=== PATIENT | male | born 1985 | race Caucasian/White ===

== ENCOUNTER 2018-06-28 22:18 | Emergency (ER) | payer OTHER ==
[~2018-06-28] VITALS: Ht 170.1 cm; Wt 138.3 kg
--- NOTE | ~2018-06-28 | EKG ---
[place], [place] ELECTROCARDIOGRAM REPORT NAME: FERNANDO KURTZ UNIT #: [id number] ROOM: DOCTOR: EPIPHANY DRAFT REPORT BIRTHDATE: [birth year] [facility] [place] Test Date: 2018-06-28 Test Time: 22:50:40 Pat Name: FERNANDO KURTZ Department: ER Room: 13 Gender: M [employer]: : 1985 Requested By: FATOUMATA PUENTES DNP Order Number: [id number] Reading MD: Riki Cameron MD Measurements Intervals [place] Rate: 85 P: -5 [place]: 137 QRS: -20 QRSD: 100 T: 20 QT: 395 QTc: 470 Interpretive Statements Sinus rhythm Borderline left axis deviation Borderline prolonged QT interval Electronically Signed On 06-30-2018 14:01:50 PDT by Riki Cameron MD CM:EKGRPT:ELECTROCARDIOGRAM REPORT 2250 [id number] FATOUMATA ALFARO DRAFT REPORT FATOUMATA PUENTES DNP
[2018-06-28 22:56] LABS: BASO # 0.1 10*3/uL (0.0-0.1); BASO % 0.8 % (0.0-1.0); EOS % 0.4 % (1.0-4.0); HEMATOCRIT 45.9 % (42.0-52.0); HEMOGLOBIN 14.9 g/dl (14.0-18.0); LYMPH # 1.6 10*3/uL (1.3-4.4); LYMPH % 20.2 % (27.0-41.0); MEAN CELL VOLUME 97.2 fl (80.0-94.0); MEAN CORPUSCULAR HGB 31.6 pg (27.0-31.0); MEAN CORPUSCULAR HGB CONC 32.5 g/dl (33.0-37.0); MEAN PLATELET VOLUME 10.6 fl (9.6-12.3); MONO # 0.7 10*3/uL (0.1-1.0); MONO % 9.1 % (3.0-9.0); NEUT # 5.4 10*3/uL (2.3-7.9); NEUT % 69.1 % (47.0-73.0); PLATELET COUNT AUTOMATED 113 10*3/uL (130-400); RED BLOOD COUNT 4.72 10*6/uL (4.50-5.90); RED CELL DISTRI WIDTH 15.8 % (0-14.5); WHITE BLOOD COUNT 7.8 10*3/uL (4.8-10.8)
[2018-06-28 23:06] LABS: ACT PARTIAL THROMBO TIME 24.2 SECONDS (20.8-31.5); INTERNATIONAL NORM RATIO 1.1 (2.0-3.5)
[2018-06-28 23:14] LABS: ACETAMINOPHEN (TYLENOL) < 5.0 ug/ml (10-30); ALBUMIN 3.2 gm/dl (3.1-4.5); ALKALINE PHOSPHATASE 213 U/L (45-117); BUN 6 mg/dl (7-24); CHLORIDE 109 mmol/L (98-107); CREATININE 0.62 mg/dL (0.70-1.30); POTASSIUM 3.9 mmol/L (3.5-5.1); SGOT/AST 113 IU/L (3-35); SGPT/ALT 95 U/L (12-78); SODIUM 143 mmol/L (136-145); TOTAL PROTEIN 6.9 gm/dL (6.4-8.2); TROPONIN I < 0.015 ng/ml (<0.045)
[2018-06-29] MEDS ORDERED: LOSARTAN-HCTZ1 EAC1 PO (00:22)
[2018-06-29 00:45] LABS: BILIRUBIN NEGATIVE (NEGATIVE); BLOOD NEGATIVE (NEGATIVE); CLARITY SL CLOUDY (CLEAR); COLOR YELLOW (YELLOW); GLUCOSE NEGATIVE (NEGATIVE); KETONE NEGATIVE (NEGATIVE); LEUKO ESTERASE NEGATIVE (NEGATIVE); NITRITE NEGATIVE (NEGATIVE); UROBILINOGEN 0.2 E.U./dl (0.2-1.0)
[2018-06-29 00:52] LABS: BACTERIA TRACE; EPITHELIAL CELLS 0-2; MUCOUS 1+; WBC 0-2 wbc/hpf (0-5)
[2018-06-29 00:57] LABS: URINE AMPHETAMINES < 1000 (1000ng/ml); URINE BARBITURATES > 200 (200ng/ml); URINE BENZODIAZEPINES > 200 (200ng/ml); URINE CANNABINOIDS (THC) > 50 (50ng/ml); URINE COCAINE < 300 (300ng/ml); URINE METHADONE < 300 (300ng/ml); URINE OPIATES < 300 (300ng/ml)
[2018-06-29 00:59] LABS: URINE PHENCYCLIDINE < 25 (25ng/ml)
== END 2018-06-29 00:48 ==
LOC: ED 22:18
PROVIDERS: Nurse Practitioner Family
DX: I10 Essential (primary) hypertension (principal); J44.9 Chronic obstructive pulmonary disease, unspecified; F17.200 Nicotine dependence, unspecified, uncomplicated; Z88.0 Allergy status to penicillin